=== PATIENT | male | born 1995 | race Caucasian/White ===

== ENCOUNTER 2017-12-20 10:20 | Emergency (ER) | payer OTHER ==
[2017-12-20] MEDS ORDERED: Bacitracin Zinc 1 Packet ONE (10:34)
== END 2017-12-20 10:45 | disposition home or self-care (01) ==
LOC: BURERS 10:20
DX: S00.03XA Contusion of scalp, initial encounter (principal); W19.XXXA Unspecified fall, initial encounter
CPT/HCPCS: 99283